=== PATIENT | female | born 1965 | race Caucasian/White ===

== ENCOUNTER 2024-03-24 17:11 | Inpatient (IN) | payer OTHER ==
[~2024-03-24] VITALS: Ht 157.5 cm; Wt 69.2 kg
[2024-03-24 18:03] LABS: ADD RBC MORPHOLOGY YES; BASOPHILS % 0.4 % (0.0-2.0); DIFFERENTIAL COMMENT 1; EOSINOPHILS % 3.1 % (0.0-5.0); HEMATOCRIT. 37.1 % (36.0-48.0); HEMOGLOBIN. 12.2 g/dL (12.0-16.0); LYMPHOCYTES % 7.6 % (20.0-50.0); MEAN CORPUSCULAR HEMOGLOBIN 25.2 pg (28.0-32.0); MEAN CORPUSCULAR VOLUME 76.5 fL (81.0-99.0); MEAN PLATELET VOLUME 7.8 fl (7.4-10.4); MONOCYTES % 6.2 % (2.0-8.0); NEUTROPHILS % 82.7 % (40.0-76.0); PLATELET 303 x1000/uL (130-400); RED BLOOD CELL COUNT 4.85 mill/uL (4.2-5.4); WHITE BLOOD COUNT 14.5 x1000/uL (4.5-11.0)
[2024-03-24 18:11] LABS: CHLORIDE 98 mEq/L (98-107); POTASSIUM 3.6 mEq/L (3.5-5.1); SODIUM 127 mEq/L (136-145)
[2024-03-24 18:12] LABS: CARBON DIOXIDE 23 mEq/L (21-32)
[2024-03-24 18:13] LABS: CALCIUM 9.3 mg/dL (8.7-10.4)
[2024-03-24 18:14] LABS: PARTIAL THROMBOPLASTIN TIME 25.9 sec (23.4-31.0); PROTHROMBIN TIME 10.9 sec (9.6-11.0)
[2024-03-24 18:17] LABS: CREATININE 0.5 mg/dL (0.6-1.0); GLUCOSE 154 mg/dL (70-105)
[2024-03-24 18:18] LABS: TROPONIN I HIGH SENSITIVITY 5 ng/L (3.0-34)
[2024-03-24 18:23] LABS: UREA NITROGEN BLOOD < 5 mg/dL (9-23)
[2024-03-24 18:25] LABS: ANISOCYTOSIS 2+; MICROCYTOSIS 1+; PLATELET ESTIMATE NORMAL
[2024-03-24] MEDS ORDERED: AZITHROMYCIN 500MG/250ML 250 ML IV ONE (18:30)
[2024-03-24] MEDS ORDERED: CEFTRIAXONE 1GM/50ML 50 ML IV ONE (18:30)
[2024-03-24] MEDS: SODIUM CHLORIDE 0.9% 1000ML BAG (SEPSIS BOLUS) IV ONE (20:30)
[2024-03-24] MEDS ORDERED: DEXTROSE 50% WATER 50ML SYRINGE IV PRN (21:00)
[2024-03-24] MEDS ORDERED: LORAZEPAM 0.5MG TABLET PO PRN (21:00)
[2024-03-24] MEDS ORDERED: GUAIFENESIN 200MG/10ML SUGAR FREE UDC PO PRN (21:00)
[2024-03-24] MEDS ORDERED: IPRATROPIUM/ALBUTEROL 0.5-3(2.5)MG/3ML NEB HHN PRN (21:00)
[2024-03-24] MEDS ORDERED: CLONIDINE 0.1MG TABLET PO PRN (21:00)
[2024-03-24] MEDS ORDERED: MAGNESIUM/ALUMINUM HYDROXIDE/SIMETHICONE 30ML UDC PO PRN (21:00)
[2024-03-24] MEDS ORDERED: ONDANSETRON HCL 4MG/2ML INJ IV PRN (21:00)
[2024-03-24] MEDS ORDERED: DOCUSATE SODIUM 100MG CAPSULE PO PRN (21:00)
[2024-03-24] MEDS ORDERED: ACETAMINOPHEN 325MG TABLET PO PRN (21:00)
[2024-03-24] MEDS: CEFTRIAXONE 1GM/50ML 50 ML IV NR (21:09)
[2024-03-24] MEDS: AZITHROMYCIN 500MG/250ML 250 ML IV NR (21:21)
[2024-03-24] MEDS: INSULIN LISPRO 100 UNITS/ML SUBCUT SCH (22:36)
[2024-03-24] MEDS: BLOOD SUGAR DIAGNOSTIC STRIP TEST SCH (22:36)
[2024-03-24 23:30] VITALS: BP 111/67; PULSE 105; RESP 18; TEMP 36.5292
[2024-03-24] MEDS ORDERED: METF-874 MT (23:49)
[2024-03-24] MEDS ORDERED: GLIP5TAB22 MT (23:51)
[2024-03-24] MEDS ORDERED: BENZ200C52 MT (23:51)
[2024-03-24] MEDS ORDERED: MONT-39 MT (23:51)
[2024-03-25] MEDS: ACETAMINOPHEN 325MG TABLET PO PRN (00:21)
[2024-03-25 00:24] LABS: BASOPHILS % 1.1 % (0.0-2.0); EOSINOPHILS % 6.1 % (0.0-5.0); HEMATOCRIT. 38.1 % (36.0-48.0); HEMOGLOBIN. 12.5 g/dL (12.0-16.0); LYMPHOCYTES % 18.6 % (20.0-50.0); MEAN CORPUSCULAR HEMOGLOBIN 25.1 pg (28.0-32.0); MEAN CORPUSCULAR HGB CONC 32.8 g/dL (31.0-37.0); MEAN CORPUSCULAR VOLUME 76.7 fL (81.0-99.0); MEAN PLATELET VOLUME 8.1 fl (7.4-10.4); MONOCYTES % 7.9 % (2.0-8.0); NEUTROPHILS % 66.3 % (40.0-76.0); PLATELET 312 x1000/uL (130-400); RED BLOOD CELL COUNT 4.98 mill/uL (4.2-5.4); RED CELL DISTRIBUTION WIDTH 25.5 % (11.6-14.6); WHITE BLOOD COUNT 10.2 x1000/uL (4.5-11.0)
[2024-03-25 00:25] LABS: DIFFERENTIAL COMMENT 1
[2024-03-25 00:36] LABS: CALCIUM 9.3 mg/dL (8.7-10.4); CARBON DIOXIDE 24 mEq/L (21-32); CHLORIDE 104 mEq/L (98-107); POTASSIUM 3.5 mEq/L (3.5-5.1); SODIUM 132 mEq/L (136-145)
[2024-03-25 00:41] LABS: CREATININE 0.4 mg/dL (0.6-1.0); GLUCOSE 95 mg/dL (70-105); IRON 31 ug/dL (50-170)
[2024-03-25 00:42] LABS: LDL CHOLESTEROL 102 mg/dL (5-100); TRIGLYCERIDE 115 mg/dL (0-150)
[2024-03-25 00:43] LABS: ALANINE AMINOTRANSFERASE 13 IU/L (10-49); ALBUMIN 4.2 g/dL (3.2-4.8); ASPARTATE AMINOTRANSFERASE 26 IU/L (<34); CHOLESTEROL 155 mg/dL (<200); CREATINE KINASE 43 IU/L (34-145); CREATINE KINASE MB FRACTION 1.8 ng/mL (0.5-3.6); HDL CHOLESTEROL 42 mg/dL (>65); PHOSPHORUS 3.2 mg/dL (2.5-4.9)
[2024-03-25 00:44] LABS: BILIRUBIN TOTAL 0.3 mg/dL (0.1-1.0); PROTEIN TOTAL 8.3 g/dL (6.0-8.3); TOTAL IRON BINDING CAPACITY 335 ug/dl (250-425); TROPONIN I HIGH SENSITIVITY 7 ng/L (3.0-34)
[2024-03-25 00:45] LABS: SODIUM URINE RANDOM 42 mEq/L
[2024-03-25 00:48] LABS: T4 FREE 1.11 ng/dL (0.89-1.76)
[2024-03-25 00:51] LABS: *AMPHETAMINES SCREEN URINE NEGATIVE (NEGATIVE); *BENZODIAZEPINES SCREEN URINE NEGATIVE (NEGATIVE)
[2024-03-25 00:52] LABS: *BARBITURATES SCREEN URINE NEGATIVE (NEGATIVE); *COCAINE SCREEN URINE NEGATIVE (NEGATIVE); CANNABINOID URINE SCREEN NEGATIVE (NEGATIVE); ECSTASY MDMA SCREEN URINE NEGATIVE (NEGATIVE); METHADONE URINE SCREEN NEGATIVE (NEGATIVE); OPIATES URINE SCREEN NEGATIVE (NEGATIVE); PHENCYCLIDINE URINE SCREEN NEGATIVE (NEGATIVE)
[2024-03-25 00:58] LABS: BILIRUBIN DIRECT < 0.1 mg/dL (<=3.0); UREA NITROGEN BLOOD < 5 mg/dL (9-23)
[2024-03-25 01:12] LABS: HEPATITIS B SURFACE ANTIGEN NEGATIVE (Negative)
[2024-03-25 01:32] LABS: HEPATITIS C AB NON REACTIVE (Neg) (Negative)
[2024-03-25 02:28] LABS: OSMOLALITY URINE 183 mOsm/kg (500-850)
[2024-03-25 04:00] VITALS: BP 103/59; PULSE 74; RESP 19; TEMP 36.55848; O2SAT 99
[2024-03-25] MEDS: MAGNESIUM OXIDE 400MG TABLET PO SCH (06:53)
[2024-03-25 07:10] LABS: CHLORIDE 101 mEq/L (98-107); POTASSIUM 3.7 mEq/L (3.5-5.1); SODIUM 132 mEq/L (136-145)
[2024-03-25 07:11] LABS: CARBON DIOXIDE 23 mEq/L (21-32); CREATINE KINASE MB FRACTION 2.2 ng/mL (0.5-3.6)
[2024-03-25 07:12] LABS: TROPONIN I HIGH SENSITIVITY 6 ng/L (3.0-34)
[2024-03-25] MEDS ORDERED: IOHEXOL-350 100 ML BOTTLE ONE (07:14)
[2024-03-25 07:16] LABS: CREATININE 0.4 mg/dL (0.6-1.0); GLUCOSE 79 mg/dL (70-105)
[2024-03-25 07:17] LABS: CREATINE KINASE 38 IU/L (34-145)
[2024-03-25 07:49] LABS: UREA NITROGEN BLOOD < 5 mg/dL (9-23)
[2024-03-25 07:59] VITALS: BP 131/68; PULSE 117; RESP 19; TEMP 36.61404; O2SAT 92
[2024-03-25] MEDS: METHYLPREDNISOLONE SOD SUCC 40MG/ML (ACT-O-VIAL) IV SCH (09:43)
[2024-03-25] MEDS: GUAIFENESIN 600MG ER TABLET PO SCH (09:50)
[2024-03-25 11:33] VITALS: BP 109/60; PULSE 81; RESP 18; TEMP 36.9474; O2SAT 98
[2024-03-25] MEDS ORDERED: PNEUMOCOCCAL 23-VAL P-SAC VAC 0.5ML IM ONE (15:00)
[2024-03-25 15:59] VITALS: BP 98/53; PULSE 81; RESP 18; TEMP 37.05852; O2SAT 94
[2024-03-25] MEDS: MONTELUKAST SODIUM 10MG TABLET PO SCH (17:31)
[2024-03-25 20:00] VITALS: BP 106/57; PULSE 82; RESP 17; TEMP 35.78064; O2SAT 100
[2024-03-25] MEDS ORDERED: *PATIENT'S OWN MEDICATION STORAGE XX SCH (20:00)
[2024-03-25 20:02] LABS: CLARITY URINE CLEAR (CLEAR); COLOR URINE YELLOW (YELLOW); GLUCOSE URINE NEGATIVE (NEGATIVE); KETONES URINE NEGATIVE (NEGATIVE); LEUKOCYTE ESTERASE URINE NEGATIVE (NEGATIVE); NITRITE URINE NEGATIVE (NEGATIVE); OCCULT BLOOD URINE NEGATIVE (NEGATIVE); PROTEIN URINE NEGATIVE (NEGATIVE); SPECIFIC GRAVITY URINE 1.015 (1.005-1.030); UROBILINOGEN URINE 0.2 E.U./dL (0.2-1.0)
[2024-03-26] VITALS: BP 102/56; PULSE 75; RESP 18; TEMP 36.61404; O2SAT 100
[2024-03-26 04:00] VITALS: BP 105/51; PULSE 72; RESP 18; TEMP 36.44736; O2SAT 98
[2024-03-26 08:00] VITALS: BP 109/54; PULSE 73; RESP 18; TEMP 36.55848; O2SAT 99
[2024-03-26 12:00] VITALS: BP 112/65; PULSE 82; RESP 18; TEMP 36.16956; O2SAT 97
[2024-03-26 16:00] VITALS: BP 112/63; PULSE 82; RESP 19; TEMP 36.05844; O2SAT 97
[2024-03-26 20:00] VITALS: BP 104/51; PULSE 78; RESP 18; TEMP 36.61404; O2SAT 98
[2024-03-26] MEDS: MELATONIN 3MG TABLET PO SCH (21:38)
[2024-03-27 00:30] VITALS: BP 107/60; PULSE 61; RESP 18; TEMP 36.83628; O2SAT 98
[2024-03-27 04:00] VITALS: BP 98/50; PULSE 63; RESP 18; TEMP 36.3918; O2SAT 100
[2024-03-27 07:15] LABS: HEMATOCRIT. 36.3 % (36.0-48.0); HEMOGLOBIN. 11.9 g/dL (12.0-16.0); LYMPHOCYTES % 12.3 % (20.0-50.0); MEAN CORPUSCULAR HEMOGLOBIN 25.1 pg (28.0-32.0); MEAN CORPUSCULAR HGB CONC 32.7 g/dL (31.0-37.0); MEAN CORPUSCULAR VOLUME 76.9 fL (81.0-99.0); MEAN PLATELET VOLUME 8.2 fl (7.4-10.4); NEUTROPHILS % 84.7 % (40.0-76.0); PLATELET 337 x1000/uL (130-400); RED BLOOD CELL COUNT 4.72 mill/uL (4.2-5.4); RED CELL DISTRIBUTION WIDTH 24.9 % (11.6-14.6); WHITE BLOOD COUNT 9.3 x1000/uL (4.5-11.0)
[2024-03-27 07:19] LABS: CARBON DIOXIDE 25 mEq/L (21-32); CHLORIDE 94 mEq/L (98-107); POTASSIUM 3.8 mEq/L (3.5-5.1); SODIUM 128 mEq/L (136-145)
[2024-03-27 07:20] LABS: CALCIUM 9.4 mg/dL (8.7-10.4)
[2024-03-27 07:24] LABS: CREATININE 0.4 mg/dL (0.6-1.0); DIFFERENTIAL COMMENT 1; GLUCOSE 138 mg/dL (70-105)
[2024-03-27 07:25] LABS: UREA NITROGEN BLOOD 10 mg/dL (9-23)
[2024-03-27 07:27] LABS: PHOSPHORUS 4.2 mg/dL (2.5-4.9)
[2024-03-27 08:00] VITALS: BP 100/62; PULSE 69; RESP 18; TEMP 36.89184; O2SAT 97
[2024-03-27] MEDS: SODIUM CHLORIDE 0.9% 1,000 ML IV SCH (08:14)
[2024-03-27] MEDS ORDERED: P20 PO (10:48)
[2024-03-27] MEDS ORDERED: PRED10TA PO (10:48)
[2024-03-27] MEDS: PREDNISONE 20MG TABLET PO SCH (11:40)
[2024-03-27] MEDS: MAGNESIUM 2 G PREMIX 50 ML IV NR (11:40)
[2024-03-27 12:00] VITALS: BP 109/60; PULSE 74; RESP 16; TEMP 36.16956; O2SAT 96
[2024-03-27] MEDS ORDERED: CEPH500T MT ×2 (14:21→16:09)
[2024-03-27] MEDS: CEPHALEXIN 250MG CAPSULE PO SCH (15:41)
[2024-03-27 16:00] VITALS: BP 111/57; PULSE 70; RESP 18; TEMP 36.6696; TEMP 36.66960; O2SAT 96
[2024-03-27] MEDS ORDERED: P20 MT (16:20)
[2024-03-27] MEDS ORDERED: PRED10TA23 MT (16:20)
[2024-03-27 17:12] VITALS: BP 109/60; PULSE 81; TEMP 98.4; O2SAT 97
== END 2024-03-27 17:50 | disposition home or self-care (01) | DRG 871 ==
LOC: ER 17:11 → EDBEDREQTM 18:32 → EDBEDREQ 18:32 → 5WST 22:03 → 7WST 23:28
PROVIDERS: ADMIT Hospitalist; ATTEND Hospitalist
DX: A41.9 Sepsis, unspecified organism (principal); J96.21 Acute and chronic respiratory failure with hypoxia; E87.1 Hypo-osmolality and hyponatremia; J84.9 Interstitial pulmonary disease, unspecified; J44.1 Chronic obstructive pulmonary disease with (acute) exacerbation; N39.0 Urinary tract infection, site not specified; I10 Essential (primary) hypertension; K76.0 Fatty (change of) liver, not elsewhere classified; J84.10 Pulmonary fibrosis, unspecified; E11.9 Type 2 diabetes mellitus without complications; F41.9 Anxiety disorder, unspecified; D53.9 Nutritional anemia, unspecified; R59.0 Localized enlarged lymph nodes; E83.42 Hypomagnesemia; F32.A Depression, unspecified; Z79.84 Long term (current) use of oral hypoglycemic drugs; Z79.4 Long term (current) use of insulin; Z99.81 Dependence on supplemental oxygen; Z79.899 Other long term (current) drug therapy
CPT/HCPCS: 36415; 71045; 71275; 80048; 80061; 80076; 80305; 81003; 82550; 82553; 82962; 83036; 83540; 83550; 83605; 83735; 83880; 83930; 83935; 84100; 84145; 84300; 84439; 84443; 84484; 85025; 85379; 86705; 87077; 87186; 87340; 93005; 93306; 93970; 99291; J0456; J0696; J1815; J2920; J3475; J7030; J7512; Q9967